=== PATIENT | male | born 1970 | race Caucasian/White ===

== ENCOUNTER 2023-12-13 08:20 | Emergency (ER) | payer OTHER, SELFPAY ==
[2023-12-13 08:36] VITALS: BP 164/97; PULSE 86; RESP 16; TEMP 36.3; O2SAT 98
--- NOTE | 2023-12-13 08:49 | ED.GENADULT ---
HPI - General Adult General Chief complaint: Skin/Abscess/Foreign Body Stated complaint: Right Hand Finger Pain Source: patient Mode of arrival: ambulatory Limitations: no limitations History of Present Illness HPI narrative: Patient presents for evaluation of redness, swelling, and pain to the skin surrounding the nail plate of the 4th digit of the right hand. Symptoms started last week with worsened yesterday. He states that rest his symptoms are 6/10 in severity but if he bumps the affected digit his pain increases to 10/10. He is right-hand dominant. He is not diabetic. He does not smoke. no fever, chills, nausea, vomiting, purulence from the affected area. Related Data Allergies Allergy/AdvReac Type Severity Reaction Status Date / Time No Known Allergies Allergy Verified 12/13/23 08:33 Review of Systems Review of Systems: CONSTITUTIONAL: Denies fever, chills, or sweats. EYES: Denies visual changes, redness, or discharge. ENT: Denies rhinorrhea, congestion, sore throat, or otalgia. CARDIOVASCULAR: Denies chest pain, palpitations, or edema. RESPIRATORY: Denies cough or dyspnea. GASTROINTESTINAL: Denies abdominal pain, nausea, vomiting, or diarrhea. GENITOURINARY: Denies dysuria or hematuria. SKIN: Reports redness to 4th digit of right hand MUSCULOSKELETAL: reports swelling and pain in the 4th digit of the right hand NEUROLOGIC: Denies headache, numbness, dizziness, or weakness. PSYCHIATRIC: Denies anxiety or depression. PMFSH Past Medical History Medical History No pertinent past medical history Surgical History Surgical History No pertinent past surgical history Family History Family History Mother Family history non-contributory Social History Social History Smoking status: Never smoker Alcohol intake: current Alcohol use details: social Substance use: never Living arrangements: alone Gender identity (if verbalized by the patient): Male Spiritual care concerns: No Exam Narrative: GENERAL: Well-appearing, well-nourished, and in no acute distress. HEAD: Normocephalic, atraumatic. EYES: PERRLA and EOMI. ENT: Nares clear, no rhinorrhea or epistaxis. Mucous membranes moist. Oropharynx without tonsillar hypertrophy exudate or other lesions. Bilateral TMs pearly chavira nonbulging NECK: Supple. No adenopathy or masses. No carotid bruits or JVD CHEST: Clear to auscultation. No respiratory distress. No wheezes rales or rhonchi HEART: Regular rate and rhythm. No murmur heard. Normal peripheral pulses. ABDOMEN: Soft, nontender, nondistended, normal active bowel sounds. EXTREMITIES: There is swelling and tenderness in distal phalax of 4th digit of right hand. SKIN: there is redness to the 4th digit of the right hand. NEURO: No focal deficits. Alert and oriented x3. PSYCH: Normal mood and affect. Course Course Emergency Course: This is a 53-year-old male who presented for evaluation of pain , erythema, and swelling to the 4th digit of the right hand. Exam is consistent with paronychia. this was drained and patient tolerated well. Wound cultures obtained. Will discharge with cephalexin and Bactrim. Follow-up with primary provider. Go to the ER for worsening symptoms. Patient in agreement with plan of care Level of Care: Express Care Visit Vital Signs Vital signs: Vital Signs Temperature 36.3 C L 12/13/23 08:36 Pulse Rate 86 12/13/23 08:36 Respiratory Rate 16 12/13/23 08:36 Blood Pressure 164/97 H 12/13/23 08:36 Pulse Oximetry 98 12/13/23 08:36 Oxygen Delivery Room Air 12/13/23 08:36 Temperature 36.3 C L 12/13/23 08:36 Pulse Rate 86 12/13/23 08:36 Respiratory Rate 16 12/13/23 08:36 Blood Pressure 164/97
[2023-12-13] MEDS: LIDOCAINE HCL 1% LOCAL INJ 2 ML AMPUL 10 ML INFILTRATE (08:51)
== END 2023-12-13 09:53 | disposition home or self-care (01) ==
PROVIDERS: Emergency Provider Nurse Practitioner
DX: L03.012 Cellulitis of left finger (principal)
CPT/HCPCS: 10160; 87070; 87075; 87081; 87205; 99213; G0463